=== PATIENT | male | born 1985 | race Asian ===

== ENCOUNTER 2018-08-04 14:44 | Emergency (ER) | payer SELFPAY ==
--- NOTE | 2018-08-04 17:10 | UC ---
Respiratory Complaint HPI - HPI Summary HPI Summary: Pt presents with c/o of cough, wheezing and reports he has a hx of asthma but has not taken his asthma medication as he was prescribed it when he lived in [place] and no longer has any. Pt also c/o nasal congestion and "scratchy" throat - History of Current Complaint Chief Complaint: UCRespiratory Stated Complaint: URI Time Seen by Provider: 08/04/18 15:59 Hx Obtained From: Patient Onset/Duration: Gradual Onset, Lasting Days, Still Present Timing: Intermittent Episodes Severity Initially: Mild Severity Currently: Mild Pain Intensity: 0 Pain Scale Used: 0-10 Numeric Character: Cough: Nonproductive Aggravating Factors: Exertion, Deep Breaths, Recumbent Position Alleviating Factors: Nothing Associated Signs And Symptoms: Positive: URI, Nasal Congestion - Risk Factors Pulmonary Embolism Risk Factors: Negative Cardiac Risk Factors: Negative Pseudomonas Risk Factors: Negative Tuberculosis Risk Factors: Negative - Allergies/Home Medications Allergies/Adverse Reactions: Allergies Allergy/AdvReac Type Severity Reaction Status Date / Time No Known Allergies Allergy Verified 08/04/18 15:45 Home Medications: Home Medications D-Methorphan/PE/Acetaminophen [Vicks Dayquil Liquicaps] 1 cap PO 08/04/18 [ History] PMH/Surg Hx/FS Hx/Imm Hx Previously Healthy: Yes Respiratory History: Asthma - Surgical History Surgical History: None - Family History Known Family History: Positive: Cardiac Disease - Social History Occupation: Employed Full-time Lives: With Family Alcohol Use: None Substance Use Type: None Smoking Status (MU): Never Smoked Tobacco Have You Smoked in the Last Year: No Review of Systems All Other Systems Reviewed And Are Negative: Yes Constitutional: Positive: Chills, Fatigue Skin: Positive: Negative Eyes: Positive: Negative ENT: Positive: Sinus Congestion Respiratory: Positive: Cough, Other - wheezing Cardiovascular: Positive: Negative Gastrointestinal: Positive: Negative Genitourinary: Positive: Negative Motor: Positive: Negative Neurovascular: Positive: Negative Musculoskeletal: Positive: Negative Neurological: Positive: Negative Psychological: Positive: Negative Is Patient Immunocompromised?: No Physical Exam Triage Information Reviewed: Yes Appearance: Ill-Appearing Vital Signs: Initial Vital Signs Temp 98.4 F 08/04/18 15:42 Pulse 79 08/04/18 15:42 Resp 18 08/04/18 15:42 BP 131/89 08/04/18 15:42 Pulse Ox 99 08/04/18 15:42 Vital Signs Reviewed: Yes Eye Exam: Normal ENT: Positive: Nasal congestion Dental Exam: Normal Neck exam: Normal Respiratory: Positive: Decreased breath sounds Cardiovascular Exam: Normal Musculoskeletal Exam: Normal Neurological Exam: Normal Psychological Exam: Normal Skin Exam: Normal UC Diagnostic Evaluation - Laboratory O2 Sat by Pulse Oximetry: 99 Respiratory Course/Dx - Differential Dx/Diagnosis Differential Diagnosis/HQI/PQRI: Asthma, Bronchitis Provider Diagnosis: Reactive airway disease, Asthma Discharge - Sign-Out/Discharge Documenting (check all that apply): Patient Departure All imaging exams completed and their final reports reviewed: No Studies - Discharge Plan Condition: Stable Disposition: HOME Prescriptions: Benzonatate CAP* [Tessalon 100 MG CAP*] 100 mg PO Q8H PRN #30 cap PRN Reason: Cough Montelukast Sodium TAB* [Singulair TAB*] 10 mg PO BEDTIME #20 tab predniSONE TAB* [Deltasone 20 MG TAB*] 20 mg PO DAILY #4 tab Patient Education Materials: Reactive Airways Disease (ED), Acute Cough (ED) Referrals: [facility] [Outside] - If Needed No Primary Care Phys,NOPCP [Primary Care Provider] - - Billing Disposition and Condition Condition: STABLE Disposition: Home
== END 2018-08-04 16:25 | disposition home or self-care (01) ==
LOC: UCEAST 14:44
DX: J45.909 Unspecified asthma, uncomplicated (principal)
CPT/HCPCS: 99202; G0463

== ENCOUNTER 2018-11-01 10:30 | Emergency (ER) | payer BC ==
--- NOTE | 2018-11-01 11:37 | ED ---
Lower Extremity - HPI Summary HPI Summary: This patient is a 33 year old M presenting to [facility] with a chief complaint of bilateral knee pain since 3 days ago. He was sent from to do further testing because of low WBC. The patient rates the pain 4/10 in severity. Patient reports difficulty standing or ambulating and lower back pain. Patient denies knee edema, decreased ROM in leg, cough, or congestion. 3 days ago, the pain was located in the entirety of his bilateral legs. Yesterday, the pain was only present in his bilateral knees. The patient recently had a long drive that he attributes to the knee pain. He can ambulate better today than the last few days. He took 24H Meloxicam at 11:00 and 23:00 yesterday, when the 11:00 pill was not sufficient to treat his pain. Rx none. - History of Current Complaint Chief Complaint: EDExtremityLower Stated Complaint: POSSIBLE KNEE INFECTION Time Seen by Provider: 11/01/18 11:16 Hx Obtained From: Patient Onset/Duration: Days - 3 Severity Currently: Mild Pain Intensity: 4 Pain Scale Used: 0-10 Numeric Location: Is Discrete @ - knees Associated Signs And Symptoms: Positive: Knee Pain. Negative: Swelling Aggravating Factor(s): Standing, Ambulation, Weight Bearing - Allergies/Home Medications Allergies/Adverse Reactions: Allergies Allergy/AdvReac Type Severity Reaction Status Date / Time No Known Allergies Allergy Verified 11/01/18 10:33 PMH/Surg Hx/FS Hx/Imm Hx Respiratory History: Reports: Hx Asthma EENT History: Denies: Hx Deafness Infectious Disease History: No Infectious Disease History: Denies: Traveled Outside the [place] in Last 30 Days - Family History Known Family History: Positive: Cardiac Disease - Social History Alcohol Use: None Substance Use Type: Reports: None Smoking Status (MU): Never Smoked Tobacco Have You Smoked in the Last Year: No Review of Systems Negative: Nasal Discharge Negative: Cough Positive: Myalgia - knee pain. Negative: Decreased ROM - legs, Edema - knees All Other Systems Reviewed And Are Negative: Yes Physical Exam - Summary Physical Exam Summary: Appearance: The patient is well-nourished in no acute distress and in no acute pain. Skin: The skin is warm and dry and skin color reflects adequate perfusion. HEENT: The head is normocephalic and atraumatic. The pupils are equal and reactive. The conjunctivae are clear and without drainage. Nares are patent and without drainage. Mouth reveals moist mucous membranes and the throat is without erythema and exudate. The external ears are intact. The ear canals are patent and without drainage. The tympanic membranes are intact. Neck: The neck is supple with full range of motion and non-tender. There are no carotid bruits. There is no neck vein distension. Respiratory: Chest is non-tender. Lungs are clear to auscultation and breath sounds are symmetrical and equal. Cardiovascular: Heart is regular rate and rhythm. There is no murmur or rub auscultated. There is no peripheral edema and pulses are symmetrical and equal. Abdomen: The abdomen is soft and non-tender. There are normal bowel sounds heard in all four quadrants and there is no organomegaly palpated. Musculoskeletal: Mild tenderness in the bilateral sciatic area. Extremities are non-tender with full range of motion. There is good capillary refill. There is no peripheral edema or calf tenderness elicited. Neurological: Patient is alert and oriented to person, place and time. The patient has symmetrical motor strength in all four extremities. Cranial nerves are grossly intact. Deep tendon reflexes are symmetrical and equal in all four extremities. Psychiatric: The patient has an appropriate affect and does not exhibit any anxiety or depression Triage Information Reviewed: Yes Vital Signs On Initial Exam: Initial Vitals Temp Pulse Resp BP Pulse Ox 98.5 F 100 16 107/80 98 11/01/18 10:31 11/01/18 10:31 11/01/18 10:31 11/01/18 10:31 11/01/18 10:31 Vital Signs Reviewed: Yes Diagnostics - Vital Signs Vital Signs Temp Pulse Resp BP Pulse Ox 11/01/18 10:31 98.5 F 100 16 107/80 98 - Laboratory Result Diagrams: 11/01/18 12:08 11/01/18 12:08 Lab Statement: Any lab studies that have been ordered have been reviewed, and results considered in the medical decision making process. - Radiology CXR Radiology Interpretation Completed By: Radiologist Summary of Radiographic Findings: NO EVIDENCE FOR ACTIVE CARDIOPULMONARY DISEASE. ED physician has reviewed this report Lower Extremity Course/Dx - Course Course Of Treatment: Mr. Guzmán has presented to the [facility] or here 3 times now. The first time was immediately following two long drives in the car and he was complaining of bilateral leg pain. He was discharged and returned to the [facility] where he was diagnosed with bilateral knee bursitis and started on a nonsteroidal. He states that after his first visit the pain that was diffuse in his legs settled in his knees. Blood was drawn on his second visit and he was noted to have a white blood cell count of 15,000 and a CRP of 120 and was contacted and recommended to come to the emergency department. When I see him he is complaining of knee pain but states that he is able to ambulate. His knees are completely unremarkable, there is no sign of swelling and they are nontender. He has a negative straight leg raise but the only positive physical finding that I can detect is some tenderness over the bilateral sciatic regions. Repeat lab work is obtained and shows a white count of 14.8 and a CRP of 200. When I go back to reevaluate him he states that he is completely pain-free. I'm not certain as to etiology of it's going on and see him when he was diagnosed with knee bursitis. My best guess is that he has some low back irritation from driving with sciatic/referred pain down into his legs initially and then knees. It is gone now. Just as we were discharging him, he spiked a low-grade fever. He did admit to a cough at that point and a chest x-ray was obtained. It's possible that his white count and CRP are unrelated to the pain in his legs and he may be getting a virus. He certainly has no evidence that he has any kind of low back infection or septic joints at this time. - Diagnoses Provider Diagnoses: Inflammation Discharge - Sign-Out/Discharge Documenting (check all that apply): Patient Departure - discharge Patient Received Moderate/Deep Sedation with Procedure: No - Discharge Plan Condition: Stable Disposition: HOME Patient Education Materials: Knee Pain (ED) Referrals: Care [facility] [Outside] - 2 Days Additional Instructions: Follow up with [facility] in the next two days. - Billing Disposition and Condition Condition: STABLE Disposition: Home - Attestation Statements Document Initiated by Scribe: Yes Documenting Scribe: Cornell Damico Provider For Whom Scribe is Documenting (Include Credential): Martín Ruiz MD Scribe Attestation: ICornell, scribed for Martín Ruiz MD on 11/01/18 at 1945. Scribe Documentation Reviewed: Yes Provider Attestation: The documentation as recorded by the [place], Cornell Damico accurately reflects the service I personally performed and the decisions made by me, Martín Ruiz MD Status of Chu Document: Viewed
[2018-11-01 12:18] LABS: ABS Basophils 0.1 10^3/ul (0-0.2); ABS Eosinophils 0.1 10^3/ul (0-0.6); ABS Lymphocytes 1.4 10^3/ul (1.0-4.8); ABS Monocytes 1.2 10^3/ul (0-0.8); ABS Nucleated RBC 0 10^3/ul; Eosinophil % 0.4 %; Hematocrit 43 % (42-52); Hemoglobin 14.4 g/dl (14.0-18.0); Lymphocyte % 9.3 %; Mean Corpuscular HGB Conc 34 g/dl (31-36); Mean Corpuscular Hemoglobin 30 pg (27-31); Mean Corpuscular Volume 88 fL (80-94); Mean Platelet Volume 8.3 fL (7.4-10.4); Nucleated Red Blood Cells % 0; Platelet Count 245 10^3/ul (150-450); Red Blood Count 4.88 10^6/ul (4.00-5.40); Red Cell Distribution Width 13 % (10.5-15); White Blood Count 14.8 10^3/ul (3.5-10.8)
[2018-11-01 12:33] LABS: Albumin 4.1 g/dL (3.2-5.2); Albumin/Globulin Ratio 1.1 (1-3); BUN/Creatinine Ratio 10.4 (8-20); C Reactive Protein 202.67 mg/L (<8.01); Calcium 9.3 mg/dL (8.6-10.3); EGFR African American 139.1 (>60); Globulin 3.7 g/dL (2-4); Potassium 3.3 mmol/L (3.5-5.0); Total Protein 7.8 g/dL (6.4-8.9)
[2018-11-01] MEDS ORDERED: Acetaminophen TAB* 325 MG PO ONE (13:35)
[2018-11-01 14:23] LABS: Influenza A Molecular NEGATIVE (Negative); Influenza B Molecular NEGATIVE (Negative)
[2018-11-01 15:07] VITALS: BP 124/79
== END 2018-11-01 15:06 | disposition home or self-care (01) ==
LOC: ED 10:30
DX: M17.0 Bilateral primary osteoarthritis of knee (principal); R05 Cough; R50.9 Fever, unspecified
CPT/HCPCS: 36415; 71046; 80053; 83605; 85025; 86140; 87040; 99282; A9270-GY

== ENCOUNTER 2019-08-09 08:58 | Emergency (ER) | payer BC ==
[2019-08-09 09:09] VITALS: BP 118/74
--- NOTE | 2019-08-09 09:12 | UC ---
Skin Complaint HPI - HPI Summary HPI Summary: 33 y/o male presents to the urgent care c/o itchy and painful rash in the RT hip and upper RT thigh for the past 5 days. Pt reports itchy rash started in the Rt lower back and then spread to her thigh and it is painful. He also states he fell on his RT side last week while roll-skating, and he though at first the mild pain was due to that fall., but hen he realized he has the itchy rash 2 days later. He has Hx of chicken pox as a child. He noticed some vesicles that are painful w/ clear discharge. Pain is 6/10 and he has not taken anything for pain of the rash. Pt denies fever, but had chills last night. Pt denies sore throat, BOWDEN, difficulty breathing, change in medications or eating anything different or changing detergents or body lotions. He also denies SOB, chest pain, calf pain, abdomianl pain, N/V/d or Hx of MRSA. - History of Current Complaint Chief Complaint: UCLowerExtremity Time Seen by Provider: 08/09/19 09:11 Stated Complaint: leg pain , red spot on leg Hx Obtained From: Patient Onset/Duration: Gradual Onset, Lasting Days - 5 days, Still Present, Worse Since - yesterday Skin Exposure Onset/Duration: Days Ago - 5 days Timing: Constant Onset Severity: Mild Current Severity: Moderate Pain Intensity: 6 Pain Scale Used: 0-10 Numeric Location: Discrete - RT side of lower back rash spreading to the RT upper thigh w/ itchiness and pain Character: Pruritus, Redness, Painful Aggravating Factor(s): Touch Alleviating Factor(s): Nothing Associated Signs & Symptoms: Positive: Chills, Rash - RT side of lower back rash spreading to the RT upper thigh w/ itchiness and pain, Tenderness. Negative: Nausea, Vomiting, Difficulty Breathing, Fever, Chest Pain, Hoarseness , Throat Tightening, Abdominal Pain, Lightheadedness, Drainage Related History: Other: - chicken pox as a child - Allergy/Home Medications Allergies/Adverse Reactions: Allergies Allergy/AdvReac Type Severity Reaction Status Date / Time No Known Allergies Allergy Verified 08/09/19 09:09 PMH/Surg Hx/FS Hx/Imm Hx Previously Healthy: Yes - Pt denies PMHX - Surgical History Surgical History: None - Family History Known Family History: Positive: Cardiac Disease - Social History Occupation: Employed Full-time Lives: With Family Alcohol Use: None Substance Use Type: None Smoking Status (MU): Never Smoked Tobacco Have You Smoked in the Last Year: No Review of Systems All Other Systems Reviewed And Are Negative: Yes Constitutional: Positive: Negative Skin: Positive: Rash - RT side of lower back rash spreading to the RT upper thigh w/ itchiness and pain Eyes: Positive: Negative ENT: Positive: Negative Respiratory: Positive: Negative Cardiovascular: Positive: Negative Gastrointestinal: Positive: Negative Genitourinary: Positive: Negative Motor: Positive: Negative Neurovascular: Positive: Negative Musculoskeletal: Positive: Negative Neurological: Positive: Negative Psychological: Positive: Negative Is Patient Immunocompromised?: No Physical Exam - Summary Physical Exam Summary: Vital Signs Reviewed: Yes General: well appearing, well nourished male in no acute apparent pain distress , sitting comfortably on examining table Eye Exam: Normal Eyes: Positive: Conjunctiva Clear - PERRLA< EOMI, fundi grossly normal ENT: Positive: Normal ENT inspection, Hearing grossly normal, Pharynx normal, TMs normal Neck: Positive: Supple, Nontender, No Lymphadenopathy Respiratory: Positive: Chest non-tender, Lungs clear, Normal breath sounds, No respiratory distress Cardiovascular: Positive: RRR, No Murmur, Pulses Normal, Brisk Capillary Refill Abdomen Description: Positive: Nontender, No Organomegaly, Soft. Negative: CVA Tenderness (R), CVA Tenderness (L) Bowel Sounds: Positive: Present Musculoskeletal: Positive: Strength Intact, ROM Intact, No Edema Neurological: Positive: Alert, Muscle Tone Normal Psychological Exam: Normal Skin: Positive: Positive mild erythematous maculopapular eruption, some papules with clear vesicles ans signs of excoriation. located in the Right lateral side of lower back around the RT hip and ending at the upper Rt thigh in a dermatomal distribution w/ mild tenderness to palpation, no swelling observed. Positive Rt inguinal Lymphadenopathy palpated and tender. B/l lower extremities w/ pulses WNL, capillary refill brisk, sensation WNL and FROM Triage Information Reviewed: Yes Vital Signs: Initial Vital Signs Temp 97.7 F 08/09/19 09:00 Pulse 72 08/09/19 09:00 Resp 18 08/09/19 09:00 BP 118/74 08/09/19 09:00 Pulse Ox 97 08/09/19 09:00 Course/Dx - Course Course Of Treatment: 33 y/o male presents to the urgent care c/o itchy and painful rash in the RT hip and upper RT thigh for the past 5 days. Pt reports itchy rash started in the Rt lower back and then spread to her thigh and it is painful. He also states he fell on his RT side last week while roll-skating, and he though at first the mild pain was due to that fall., but hen he realized he has the itchy rash 2 days later. He has Hx of chicken pox as a child. He noticed some vesicles that are painful w/ clear discharge. Pain is 6/10 and he has not taken anything for pain of the rash. Pt denies fever, but had chills last night. Pt denies sore throat, BOWDEN, difficulty breathing, change in medications or eating anything different or changing detergents or body lotions. He also denies SOB, chest pain, calf pain, abdomianl pain, N/V/d or Hx of MRSA. Hx obtained. Pt is hemodynamically stable, Vitals: WNL and with Herpes Zoster on the Right lateral side of lower back around the RT hip and ending at the upper Rt thigh in a dermatomal distribution on examination. Pt Rx valtrex, Calamide lotion and Ibuprofen PO to alleviate symptoms. Pt advised if not improvement or worsening of symptoms to return to the clinic or f/u with PCP in 2-3 days for further treatment. Pt also explained to avoid contact w/ women or babies. PT understood and agreed with plan of care. - Differential Diagnoses - Skin Complaint Differential Diagnoses: Abscess, Cellulitis, Contact Dermatitis, Local Allergic Reaction, MRSA, Poison Nina, Poison [place], Tick Born Illness, Urticaria, Varicella Zoster - Diagnoses Provider Diagnosis: Shingles rash Discharge ED - Sign-Out/Discharge Documenting (check all that apply): Patient Departure - D/C home All imaging exams completed and their final reports reviewed: No Studies - Discharge Plan Condition: Stable Disposition: HOME Prescriptions: Calamine/Pramoxine LOTION* [Caladryl LOTION*] 1 applic .SEE ORDER BID #1 btl Ibuprofen TAB* [Motrin TAB* 800 MG] 800 mg PO Q6H PRN #30 tab PRN Reason: moderate pain ValACYclovir (*) [Valtrex 1 GM(*)] 1 gm PO TID #21 tab Patient Education Materials: Shingles (ED) Referrals: Phil Field, [employer] [Primary Care Provider] - 3 Days Additional Instructions: 1- Please take Valtrex PO as directed to alleviate shingles. Avoid contact w/ women. 2-Please Caladryl topical cream as directed to alleviate itchiness. 3-Take ibuprofen PO after meals as directed to alleviate pain. 4-If symptoms do not improve or worsen please f/u with your PCP in 2-3 days or return to the urgent care for further evaluation and treatment. - Billing Disposition and Condition Condition: STABLE Disposition: Home
== END 2019-08-09 09:52 | disposition home or self-care (01) ==
LOC: UCEAST 08:58
DX: B02.9 Zoster without complications (principal)
CPT/HCPCS: 99212; G0463

== ENCOUNTER 2019-08-16 14:20 | Emergency (ER) | payer BC ==
[2019-08-16 14:38] VITALS: BP 113/77
--- NOTE | 2019-08-16 15:12 | UC ---
Skin Complaint HPI - HPI Summary HPI Summary: 33-year-old male comes in with a chief complaint of rash. Patient was seen here one week ago and diagnosed shingles. Patient reports he about 4 days of symptoms prior to being seen here one week ago. He was started on valacyclovir 1 g by mouth 3 times a day for 7 days. Also using topical calamine lotion. The rash continues to be itchy painful. Patient reports there appears to be some new rash in the area. The rashes right sided low back goes into the right upper thigh. No fevers or chills feels well otherwise. - History of Current Complaint Chief Complaint: UCSkin Time Seen by Provider: 08/16/19 14:41 Stated Complaint: FOLLOW UP WITH RASH Pain Intensity: 6 - Allergy/Home Medications Allergies/Adverse Reactions: Allergies Allergy/AdvReac Type Severity Reaction Status Date / Time No Known Allergies Allergy Verified 08/16/19 14:38 PMH/Surg Hx/FS Hx/Imm Hx Previously Healthy: Yes - NOT IMMUNOCOMPROMISED - Surgical History Surgical History: None - Family History Known Family History: Positive: Cardiac Disease - Social History Alcohol Use: None Substance Use Type: None Smoking Status (MU): Never Smoked Tobacco Have You Smoked in the Last Year: No Review of Systems All Other Systems Reviewed And Are Negative: Yes Constitutional: Positive: Other - SEE HPI Skin: Positive: Other - SEE HPI Eyes: Positive: Negative ENT: Positive: Negative Respiratory: Positive: Negative Cardiovascular: Positive: Negative Gastrointestinal: Positive: Negative Motor: Positive: Negative Neurovascular: Positive: Negative Musculoskeletal: Positive: Negative Neurological: Positive: Negative Psychological: Positive: Negative Is Patient Immunocompromised?: No Physical Exam Triage Information Reviewed: Yes Appearance: Well-Appearing, No Pain Distress, Well-Nourished Vital Signs: Initial Vital Signs Temp 98.2 F 08/16/19 14:36 Pulse 76 08/16/19 14:36 Resp 18 08/16/19 14:36 BP 113/77 08/16/19 14:36 Pulse Ox 98 08/16/19 14:36 Vital Signs Reviewed: Yes Eye Exam: Normal Eyes: Positive: Conjunctiva Clear Neck: Positive: Supple Respiratory: Positive: No respiratory distress Musculoskeletal: Positive: Strength Intact, ROM Intact Neurological: Positive: Alert, Muscle Tone Normal Psychological: Positive: Age Appropriate Behavior Skin: Positive: Other - There is a rash in a dermatomal distribution starting in the low back wrapping around to the right upper thigh. There are some new areas which appear more to be folliculitis with small pustules in the inguinal area on the right side. There is some underlying erythema. No drainage. Course/Dx - Course Course Of Treatment: Most probable cause of the patient's continued pain and itching is that he started valacyclovir for days after his symptoms started and the antiviral is not greatly impacting the course of his shingles. He's not immunocompromised. However other possibilities include that longer course of valacyclovir may be helpful for the folliculitis may be bacterial based. Therefore treating with another week of valacyclovir and also a week of Keflex. For the pain I prescribed gabapentin. I recommended follow-up within 1 week with his primary care doctor. For the gabapentin I recommended 300 mg a day 1, 300 mg twice a day and on 2, and then 300 mg 3 times a day on day 3 until he follows up with his primary care doctor and they can decide how they would like to titrate the dosing beyond the 900 mg total in a day. Patient to get reevaluate sooner for any questions or concerns. - Diagnoses Provider Diagnosis: Shingles Discharge ED - Sign-Out/Discharge Documenting (check all that apply): Patient Departure All imaging exams completed and their final reports reviewed: No Studies - Discharge Plan Condition: Stable Disposition: HOME Prescriptions: Cephalexin CAP* [Keflex CAP*] 500 mg PO TID #21 cap Gabapentin 300 mg PO SEE INSTRUCTIONS #90 capsule Valacyclovir HCl [Valacyclovir] 1 gm PO TID #21 tab Patient Education Materials: Shingles (ED) Referrals: Phil Field NP [Primary Care Provider] - Additional Instructions: FOLLOW UP WITH YOUR DOCTOR. CALL TODAY TO ARRANGE A FOLLOW UP WITHIN ONE WEEK. GABAPENTIN INSTRUCTIONS; TAKE 300MG ONCE A DAY FOR THE FIRST DAY THEN, TAKE 200MG TWICE A DAY ON THE SECOND DAY THEN, TAKE 300MG THREE TIMES A DAY ON THE THIRD DAY. CONTINUE 300MG THREE TIMES A DAY UNTIL YOU SEE YOUR PRIMARY CARE DOCTOR. GET REEVALUATED SOONER IF NOT IMPROVED OR WORSE; FEVER, YOU FEEL ILL OR ANY QUESTIONS OR CONCERNS. - Billing Disposition and Condition Condition: STABLE Disposition: Home
== END 2019-08-16 15:20 | disposition home or self-care (01) ==
LOC: UCEAST 14:20
DX: B02.9 Zoster without complications (principal)
CPT/HCPCS: 99212; G0463